=== PATIENT | female | born 1940 | race Hispanic/Latino ===

== ENCOUNTER 2017-06-27 15:37 | Emergency (ER) | payer MEDICARE, OTHER ==
[2017-06-27 15:51] VITALS: BMI 30.4
--- NOTE | 2017-06-27 16:20 | ED PDOC ---
Arrival/HPI - General Chief Complaint: Finger,Hand,&Wrist Time Seen by Provider: 06/27/17 15:52 Historian: Patient - History of Present Illness Narrative History of Present Illness (Text): 06/27/17 16:20 This 77 yo female presents to this ED c/o right hand pain x 3 hours. Patient stated during a CT scan, the IV contrast infiltrated her right hand and wrist. Patient stated she was seen by radiologist, who recommended her warmth compress , and she was discharged her home. Patient stated she was not sure how to manage hand problem, so she went to see her PMD. PMD recommended her to go to ED for revaluation. Patient denies other complains. Time/Duration: Other (see hpi) Context: Home Past Medical History - Provider Review Nursing Documentation Reviewed: Yes - Cardiac Hx Cardiac Disorders: Yes Hx Congestive Heart Failure: Yes Hx Hypertension: Yes - Pulmonary Hx Respiratory Disorders: No - Neurological Hx Neurological Disorder: No - HEENT Hx HEENT Disorder: No - Renal Hx Renal Disorder: No - Endocrine/Metabolic Hx Endocrine Disorders: No - Hematological/Oncological Hx Blood Disorders: Yes Hx Anemia: Yes - Integumentary Hx Dermatological Disorder: No - Musculoskeletal/Rheumatological Hx Musculoskeletal Disorders: No Hx Falls: No - Gastrointestinal Hx Gastrointestinal Disorders: No - Genitourinary/Gynecological Hx Genitourinary Disorders: No - Psychiatric Hx Psychophysiologic Disorder: No Hx Depression: No Hx Emotional Abuse: No Hx Physical Abuse: No Hx Substance Use: No - Surgical History Hx Hysterectomy: Yes - Suicidal Assessment Feels Threatened In Home Enviroment: No Family/Social History - Physician Review Nursing Documentation Reviewed: Yes Family/Social History: Other (noncontributory) Smoking Status: Never Smoked Hx Alcohol Use: No Hx Substance Use: No Allergies/Home Meds Allergies/Adverse Reactions: Allergies No Known Allergies Allergy (Verified 06/27/17 15:51) Home Medications: Home Meds Medication Instructions Recorded Confirmed Carvedilol [Coreg] 1 tab PO BID 05/04/15 06/27/17 Ferrous Sulfate [Feosol] 324 mg PO BID 05/04/15 06/27/17 Furosemide [Lasix] 20 mg PO BID 05/04/15 06/27/17 Potassium Chloride [Klor-Con 10] 20 meq PO BID 05/04/15 06/27/17 Review of Systems - Review of Systems Constitutional: Normal. absent: Fatigue, Weight Change, Fevers, Night Sweats Eyes: Normal ENT: Normal Respiratory: Normal. absent: SOB, Cough Cardiovascular: Normal. absent: Chest Pain Gastrointestinal: Normal. absent: Abdominal Pain, Nausea, Vomiting Genitourinary Female: Normal Musculoskeletal: Other (right hand pain s/p IV contrast infiltration) Skin: Normal Neurological: Normal Endocrine: Normal Hemo/Lymphatic: Normal Psychiatric: Normal Physical Exam Vital Signs Temp Pulse Resp BP Pulse Ox 06/27/17 17:00 68 18 158/71 H 98 06/27/17 15:51 97.3 F L 60 19 165/76 H 97 06/27/17 15:49 66 19 165/76 H 97 Temperature: Afebrile Blood Pressure: Normal Pulse: Regular Respiratory Rate: Normal Appearance: Positive for: Well-Appearing, Non-Toxic, Comfortable Pain Distress: None Mental Status: Positive for: Alert and Oriented X 3 - Systems Exam Head: Present: Atraumatic, Normocephalic Mouth: Present: Moist Mucous Membranes Neck: Present: Normal Range of Motion Upper Extremity: Present: Normal ROM, NORMAL PULSES, Neurovascularly Intact, Capillary Refill < 2s, Other ((+) right dorsal hand and wrist are mild swollen. no erythema, ecchymosis, or compartment syndrome. Patient is able to mahe a fist without difficulty. Patient is right hand dominant.). No: Cyanosis, Edema , Temperature Abnormalties Lower Extremity: Present: Normal Inspection, Normal ROM Neurological: Present: GCS=15, CN II-XII Intact, Speech Normal, Motor Func Grossly Intact, Normal Sensory Function, Normal Cerebellar Funct Skin: Present: Warm, Dry, Normal Color. No: Rashes Psychiatric: Present: Alert, Oriented x 3, Normal Insight, Normal Concentration Medical Decision Making ED Course and Treatment: 06/27/17 16:27 arm sling and warmth compress applied 06/27/17 17:26 Re-evaluation. Patient feels better. Discussed results and plan with patient who expresses understanding. All questions answered and there is agreement with the plan to discharge home with instructions. Patient stable for discharge. Return if symptoms persist or worsen. Re-evaluation Time: 17:26 Reassessment Condition: Re-examined, Improved Disposition/Present on Arrival - Present on Arrival Any Indicators Present on Arrival: No History of DVT/PE: No History of Uncontrolled Diabetes: No Urinary Catheter: No History of Decub. Ulcer: No History Surgical Site Infection Following: None - Disposition Have Diagnosis and Disposition been Completed?: Yes Diagnosis: Injection site extravasation Disposition: HOME/ ROUTINE Disposition Time: 17:27 Patient Plan: Discharge Condition: GOOD Discharge Instructions (ExitCare): IV Infiltration (ED) Additional Instructions: Call private doctor for follow up visit in 1-2 days. Apply warmth compress over the area of swelling every 2 hours for 10 minutes. Return to emergency if hand becomes redness, or pain worsen or if swelling worsen or persist. Referrals: Bridgette Irwin, [Primary Care Provider] - Follow up with primary Forms: [employer] ([place])
[2017-06-27 16:21] VITALS: TEMP 97.3
[2017-06-27 17:09] VITALS: BP 158/71; PULSE 68; RESP 18; O2SAT 98
== END 2017-06-27 17:38 | disposition home or self-care (01) ==
LOC: ED 15:37
DX: T80.89XA Other complications following infusion, transfusion and therapeutic injection, initial encounter (principal); I10 Essential (primary) hypertension; I50.9 Heart failure, unspecified